=== PATIENT | male | born 1970 | race Caucasian/White ===

== ENCOUNTER 2020-10-04 06:54 | Outpatient (NON) | payer OTHER, SELFPAY ==
[2020-10-04 23:29] LABS: SARS-CoV-2 RNA PCR Negative
== END 2020-10-04 06:55 ==
LOC: ANHCOVIDDT 07:11
PROVIDERS: PCP Family Medicine Sports Medicine; Visit Provider Family Medicine Sports Medicine
DX: R06.02 Shortness of breath (principal); R53.83 Other fatigue; Z20.822 Contact with and (suspected) exposure to COVID-19
CPT/HCPCS: C9803; U0003